=== PATIENT | male | born 1965 | race Caucasian/White ===

== ENCOUNTER 2019-04-22 10:23 | Emergency (ER) | payer MEDICAID ==
[~2019-04-22] VITALS: Ht 177.8 cm; Wt 95.3 kg
[2019-04-22 10:35] VITALS: BP_SYST 147
[2019-04-22] MEDS ORDERED: fentaNYL CITRATE/PF 100 MCG/2 ML AMP IVP ONE (11:00)
[2019-04-22] MEDS ORDERED: KETAMINE 30 MG/3 ML SYRINGE 30 MG in NS 100 ML IV ONE (11:00)
[2019-04-22] MEDS ORDERED: KETAMINE 30 MG/3 ML SYRINGE ONE (11:16)
[2019-04-22] MEDS ORDERED: cloNIDine HCL 0.1 MG TABLET PO ONE (12:45)
[2019-04-22 13:12] VITALS: BP_SYST 174
== END 2019-04-22 13:14 | disposition home or self-care (01) ==
LOC: SED 10:23
DX: M54.5 Low back pain (principal); I10 Essential (primary) hypertension
CPT/HCPCS: 96365; 96375; 99283; J3010